=== PATIENT | female | born 1960 | race Caucasian/White ===

== ENCOUNTER 2016-10-06 02:27 | Inpatient (IN) | payer BC ==
[~2016-10-06] VITALS: Ht 165.1 cm; Wt 87.8 kg
[~2016-10-06 02:27] MED LIST: ALLEGRA60 MG PO; BUSPAR; FISH OIL1 IU PO; ONE DAILY1 TA1 PO; PREDNISONE20 MG PO; VALTREX; WELLBUTRIN PO; [UNRECOGNIZED DRUG - OTHER]; [UNRECOGNIZED DRUG - REMARK]; calcium
[2016-10-06] MEDS ORDERED: BUSPAR DIVIDOSE15 MG PO (02:50)
[2016-10-06] MEDS ORDERED: VALTREX 50500 MG/TAB PO (02:50)
[2016-10-06] MEDS ORDERED: WELLBUTRIN XL300 M1 PO (02:51)
[2016-10-06] MEDS ORDERED: PERCOCET 325 MG1 TA2 PO (02:51)
[2016-10-06] MEDS ORDERED: NAPROSYN500 MG PO (02:52)
[2016-10-06] MEDS ORDERED: DULCOLAX STOOL100 MG PO (02:53)
[2016-10-06 03:14] LABS: BASO % 0.3 % (0.0-2.0); EOS % 0.5 % (0-4.0); GRAN # 4.9 (1.4-6.5); GRAN % 81.6 % (42.2-75.2); HEMATOCRIT 38.8 % (37.0-47.0); LYMPH # 0.5 (1.2-3.4); LYMPH % 8.2 % (20.0-51.0); MEAN CELL VOLUME 92 fl (80.0-100.0); MEAN CORPUSCULAR HEMOGLOBIN 31 pg (27.0-31.0); MEAN CORPUSCULAR HGB CONC 34 g/dl (33.0-37.0); MEAN PLATELET VOLUME 9.9 fl (7.4-10.4); MONO # 0.6 (0.1-0.6); MONO % 9.2 % (1.7-9.3); PLATELET COUNT 283 K/mm3 (130-400); RED BLOOD COUNT 4.24 M/mm3 (4.10-5.30); REDCELL DISTRIBUTION WIDTH-CV 13.9 % (11.5-14.5)
[2016-10-06 03:22] LABS: ADJUSTED CALCIUM 9.7 mg/dL (8.4-10.2); ALBUMIN 4.3 gm/dL (3.5-5.0); CALCIUM 9.9 mg/dL (8.4-10.2); CREATININE, serum 1.11 mg/dL (0.52-1.25); POTASSIUM 3.9 mmol/L (3.4-5.0); TOTAL PROTEIN 7.2 gm/dL (6.4-8.2)
[2016-10-06 05:59] VITALS: BP 143/76; PULSE 94; TEMP 98.5
[2016-10-06 09:48] VITALS: BP 135/71; PULSE 96; TEMP 97.8
[2016-10-06 13:41] VITALS: BP 125/74; PULSE 94; TEMP 98.2
[2016-10-06 17:47] VITALS: BP 136/80; PULSE 94; TEMP 98.4
[2016-10-06 22:23] VITALS: BP 123/69; PULSE 100; TEMP 99.9
[2016-10-07 02:32] VITALS: BP 132/61; PULSE 97; TEMP 98.4
[2016-10-07 06:36] VITALS: BP 137/72; PULSE 95; TEMP 98.1
[2016-10-07 07:02] LABS: MEAN CELL VOLUME 96 fl (80.0-100.0); MEAN CORPUSCULAR HGB CONC 32 g/dl (33.0-37.0); MEAN PLATELET VOLUME 10.1 fl (7.4-10.4); PLATELET COUNT 262 K/mm3 (130-400); RED BLOOD COUNT 3.82 M/mm3 (4.10-5.30); REDCELL DISTRIBUTION WIDTH-CV 14.3 % (11.5-14.5); WHITE BLOOD COUNT 3.1 K/mm3 (4.8-10.8)
[2016-10-07 07:14] LABS: ADD PATHOLOGY DIFF REVIEW NO; HEMATOCRIT 36.6 % (37.0-47.0); HEMOGLOBIN 11.7 g/dl (12.5-16.0); MEAN CORPUSCULAR HEMOGLOBIN 31 pg (27.0-31.0)
[2016-10-07 07:16] LABS: ADJUSTED CALCIUM 8.9 mg/dL (8.4-10.2); ALBUMIN 3.6 gm/dL (3.5-5.0); BILIRUBIN,TOTAL 0.7 mg/dL (0.0-1.0); CALCIUM 8.6 mg/dL (8.4-10.2); CREATININE, serum 1.04 mg/dL (0.52-1.25); TOTAL PROTEIN 6.2 gm/dL (6.4-8.2)
[2016-10-07 08:45] LABS: BAND 39 % (0-10); BASOPHIL 1 % (0-2); NEUTROPHILS 35 % (42.0-75.2); PLATELET ESTIMATE NORMAL (NORMAL); TOTAL CELLS COUNTED 100
[2016-10-07 09:10] VITALS: BP 138/69; PULSE 87; TEMP 98.4
[2016-10-07 13:28] VITALS: BP 136/72; PULSE 88; TEMP 98
[2016-10-07 17:14] VITALS: BP 140/82; PULSE 85; TEMP 98
[2016-10-07 21:14] VITALS: BP 147/86; PULSE 85; TEMP 99.2
[2016-10-08 01:50] VITALS: BP 148/76; PULSE 99; TEMP 97.6
[2016-10-08 05:02] VITALS: BP 142/71; PULSE 96; TEMP 98.1
[2016-10-08 06:16] LABS: ADD PATHOLOGY DIFF REVIEW NO
[2016-10-08 06:20] LABS: MEAN CELL VOLUME 96 fl (80.0-100.0); MEAN CORPUSCULAR HGB CONC 32 g/dl (33.0-37.0); PLATELET COUNT 268 K/mm3 (130-400); REDCELL DISTRIBUTION WIDTH-CV 14.3 % (11.5-14.5); WHITE BLOOD COUNT 3.3 K/mm3 (4.8-10.8)
[2016-10-08 06:23] LABS: HEMATOCRIT 32.5 % (37.0-47.0); HEMOGLOBIN 10.4 g/dl (12.5-16.0); MEAN CORPUSCULAR HEMOGLOBIN 31 pg (27.0-31.0)
[2016-10-08 06:39] LABS: ADJUSTED CALCIUM 8.9 mg/dL (8.4-10.2); ALBUMIN 3.3 gm/dL (3.5-5.0); BILIRUBIN,TOTAL 0.7 mg/dL (0.0-1.0); CALCIUM 8.3 mg/dL (8.4-10.2); CREATININE, serum 0.94 mg/dL (0.52-1.25); POTASSIUM 4.3 mmol/L (3.4-5.0); TOTAL PROTEIN 5.9 gm/dL (6.4-8.2)
[2016-10-08 09:25] VITALS: BP 121/69; PULSE 68; TEMP 98.4
[2016-10-08 09:45] LABS: ANISOCYTOSIS 1+; BAND 26 % (0-10); HYPOCHROMIA 1+; NEUTROPHILS 37 % (42.0-75.2); PLATELET ESTIMATE NORMAL (NORMAL); TOTAL CELLS COUNTED 100
[2016-10-08 13:57] VITALS: BP 132/80; PULSE 75; TEMP 98.5
[2016-10-08 17:36] VITALS: BP 150/85; PULSE 78
== END 2016-10-08 18:50 | disposition home or self-care (01) | DRG 390 ==
LOC: COL.ER 02:27 → SURG 04:14
PROVIDERS: Family Medicine; Surgery
PROC: 0D9670Z Drainage of Stomach with Drainage Device, Via Natural or Artificial Opening (ICD-10-PCS; principal; 2016-10-06)
DX: K56.60 Unspecified intestinal obstruction (principal)
CPT/HCPCS: J1170; J1650; J1885; J2060; J2405; J2550; J7030; J7120; Q9967

== ENCOUNTER → 2018-06-11 | Outpatient (CLI) | payer BC ==
[~2018-06-11] MED LIST changes: +BUSPAR DIVIDOSE15 MG PO; +DULCOLAX STOOL100 MG PO; +NAPROSYN500 MG PO; +PERCOCET 325 MG1 TA2 PO; +VALTREX 50500 MG/TAB PO; +WELLBUTRIN XL300 M1 PO
== END ==
LOC: MC.RAD 10:51
DX: Z12.31 Encounter for screening mammogram for malignant neoplasm of breast (principal)

== ENCOUNTER → 2019-06-21 | Outpatient (CLI) | payer BC | LOC: MC.RAD 09:55 | DX: Z12.31 Encounter for screening mammogram for malignant neoplasm of breast (principal) ==

== ENCOUNTER → 2019-12-15 | Outpatient (CLI) | payer BC | LOC: COL.RAD 13:45 | DX: M46.1 Sacroiliitis, not elsewhere classified (principal); M54.31 Sciatica, right side | CPT/HCPCS: G0260; J3301 ==

== ENCOUNTER 2020-08-06 11:16 | Emergency (ER) | payer BC ==
[~2020-08-06] VITALS: Ht 162.6 cm; Wt 79.5 kg
[2020-08-06 11:23] VITALS: TEMP 97.7
[2020-08-06 11:58] LABS: BASO % 0.8 % (0.0-2.0); EOS # 0.1 (0.0-0.7); EOS % 1.7 % (0-4.0); GRAN # 2.5 (1.4-6.5); GRAN % 51.9 % (42.2-75.2); HEMOGLOBIN 13.2 g/dl (12.5-16.0); LYMPH # 1.7 (1.2-3.4); LYMPH % 35.5 % (20.0-51.0); MEAN CELL VOLUME 97 fl (80.0-100.0); MEAN CORPUSCULAR HEMOGLOBIN 31 pg (27.0-31.0); MEAN CORPUSCULAR HGB CONC 32 g/dl (33.0-37.0); MEAN PLATELET VOLUME 10.1 fl (7.4-10.4); MONO # 0.5 (0.1-0.6); MONO % 9.9 % (1.7-9.3); PLATELET COUNT 300 K/mm3 (130-400); RED BLOOD COUNT 4.23 M/mm3 (4.10-5.30); REDCELL DISTRIBUTION WIDTH-CV 14.6 % (11.5-14.5)
[2020-08-06 12:13] LABS: ALANINE AMINOTRANSFERASE 16 U/L (4-34); ALBUMIN 4.5 gm/dL (3.5-5.0); ALKALINE PHOSPHATASE 45 U/L (50-136); ANION GAP 8 mmol/L (7-16); AST,SGOT 32 U/L (15-37); BILIRUBIN,TOTAL 0.6 mg/dL (0.0-1.0); BLOOD UREA NITROGEN 20 mg/dL (7-17); CALCIUM 9.4 mg/dL (8.4-10.2); CARBON DIOXIDE 24 mmol/L (22-30); CHLORIDE 108 mmol/L (98-107); GLUCOSE 89 mg/dL (74-106); POTASSIUM 4.3 mmol/L (3.4-5.0); SODIUM 140 mmol/L (137-145); TOTAL PROTEIN 7.4 gm/dL (6.4-8.2)
[2020-08-06 12:25] LABS: TROPONIN-I < 0.012 ng/mL (0.000-0.035)
[2020-08-06] MEDS ORDERED: ATIVAN 0.50.5 MG/TAB PO (13:49)
[2020-08-06 13:55] VITALS: BP 124/74; PULSE 66
== END 2020-08-06 13:57 | disposition home or self-care (01) ==
LOC: COL.ER 11:16
PROVIDERS: Physician Assistant
DX: R07.2 Precordial pain (principal); F41.9 Anxiety disorder, unspecified; G43.909 Migraine, unspecified, not intractable, without status migrainosus; Z20.822 Contact with and (suspected) exposure to COVID-19
CPT/HCPCS: J2060

== ENCOUNTER → 2021-10-28 | Outpatient (CLI) | payer BC ==
[~2021-10-28] MED LIST changes: +ATIVAN 0.50.5 MG/TAB PO
== END ==
LOC: MC.RAD 10:25
DX: Z12.31 Encounter for screening mammogram for malignant neoplasm of breast (principal)